=== PATIENT | female | born 2005 | race Caucasian/White ===

== ENCOUNTER 2024-10-20 22:14 | Emergency (ER) | payer MEDICAID | END 2024-10-20 23:30 | disposition home or self-care (01) | LOC: JP.ED 22:14 | DX: O99.891 Other specified diseases and conditions complicating pregnancy (principal); R10.30 Lower abdominal pain, unspecified; Z91.048 Other nonmedicinal substance allergy status; Z91.09 Other allergy status, other than to drugs and biological substances; Z79.899 Other long term (current) drug therapy; Z86.16 Personal history of COVID-19; Z3A.08 8 weeks gestation of pregnancy | CPT/HCPCS: 99283; A9270 ==